=== PATIENT | male | born 1995 | race Caucasian/White ===

== ENCOUNTER 2023-11-16 11:19 | Emergency (ER) | payer SELFPAY ==
[2023-11-16] MEDS: Morphine 4 MG/ML Syringe IVPUSH STA (12:10)
[2023-11-16] MEDS: Sodium Chloride 0.9% 10 ML Syringe FLUSH PRN (12:10)
[2023-11-16] MEDS: Sodium Chloride 0.9% 2.5 ML Syringe FLUSH PRN (12:10)
[2023-11-16] MEDS: Sodium Chloride 0.9% 1,000 ML IV STA (12:10)
[2023-11-16] MEDS: Ondansetron 4 MG/2 ML SDV IVPUSH STA (12:10)
[2023-11-16] MEDS: Ondansetron 4 MG Tab.DIS PO STA (12:31)
[2023-11-16] MEDS: Ketorolac 30 MG/ML SDV IM STA (12:58)
[2023-11-16 13:00] LABS: BASOPHILS ABSOLUTE AUTO 0.04 K/uL (0.00-0.20); BASOPHILS PERCENT AUTO 0.4 % (0.0-1.0); EOSINOPHILS ABSOLUTE AUTO 0.16 K/uL (0.00-0.45); EOSINOPHILS PERCENT AUTO 1.6 % (0.0-6.0); HEMATOCRIT 47.4 % (42.0-52.0); HEMOGLOBIN 16.6 g/dL (14.0-18.0); IMMATURE GRAN ABSOLUTE AUTO 0.04 K/uL (0.00-0.05); IMMATURE GRAN PERCENT AUTO 0.4 % (0.0-0.4); LYMPHOCYTES ABSOLUTE AUTO 2.14 K/uL (1.00-4.80); LYMPHOCYTES PERCENT AUTO 20.7 % (24.0-44.0); MEAN CORPUSCULAR HEMOGLOBIN 30.5 pg (28.0-32.0); MEAN PLATELET VOLUME 10.9 fL (9.4-12.4); MONOCYTES ABSOLUTE AUTO 0.66 K/uL (0.00-0.80); MONOCYTES PERCENT AUTO 6.4 % (0.0-8.0); NEUTROPHILS ABSOLUTE AUTO 7.28 K/uL (1.80-7.70); NEUTROPHILS PERCENT AUTO 70.5 % (41.0-71.0); PLATELET COUNT,PLT 248 K/uL (150-400); RED BLOOD CELL COUNT 5.45 M/uL (4.52-5.90); WHITE BLOOD CELL COUNT,WBC 10.32 K/uL (3.9-11.3)
[2023-11-16 13:53] LABS: A/G RATIO 1.2 (0.9-1.6); ALBUMIN 4.1 g/dL (3.4-5.0); BILIRUBIN TOTAL 0.7 mg/dL (0.2-1.0); CALCIUM 9.6 mg/dL (8.5-10.1); CARBON DIOXIDE,CO2 22.4 mmol/L (21.0-32.0); CREATININE 1.2 mg/dL (0.8-1.3); EST CRCL DRUG DOSING (CG) 90.01 mL/min; POTASSIUM,K 3.8 mmol/L (3.5-5.1); PROTEIN TOTAL,TP 7.5 g/dL (6.4-8.2)
[2023-11-16] MEDS: Iopamidol 755 MG/ML 500 ML Multipack Bottle IVPUSH STA (14:51)
== END 2023-11-16 15:49 | disposition home or self-care (01) ==
LOC: MW.ED 11:19
DX: K52.9 Noninfective gastroenteritis and colitis, unspecified (principal); Z88.5 Allergy status to narcotic agent; Z75.8 Other problems related to medical facilities and other health care
CPT/HCPCS: 36415; 74177; 80053; 83690; 85025; 96361; 96372; 96374; 99284; A9270; J1885; J2405; J3490; J7030; Q9967